=== PATIENT | female | born 2000 | race Caucasian/White ===

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

== ENCOUNTER 2020-08-20 12:14 | Emergency (ER) | payer MEDICAID ==
[~2020-08-20] VITALS: Ht 160 cm; Wt 61.2 kg
[2020-08-20 12:29] VITALS: BP_SYST 127
--- NOTE | 2020-08-20 12:56 | NUR ---
Patient to ER bed 04 to gown for evaluation. Side rails up.
--- NOTE | 2020-08-20 13:10 | NUR ---
PT COMING FROM HOME C/O EPIGASRIC PAIN FOR THE LAST THREE DAYS. PT DENIES ANY N/V/D. PT RESPITATION IS EVEN AND UNLABORED. URINE SEND TO LAB
[2020-08-20 13:33] LABS: BASOPHILS % (AUTO) 0.6 % (0.0-2.0); EOSINOPHILS # (AUTO) 0.2 K/uL (0.0-0.4); EOSINOPHILS % (AUTO) 3.6 % (0.0-4.0); HEMOGLOBIN 13.2 g/dL (12.0-16.0); LYMPHOCYTES % (AUTO) 37.7 % (20.5-51.5); MEAN CORPUSCULAR HEMOGLOBIN 29 pg (27-31); MEAN CORPUSCULAR HGB CONC 34 % (32-36); MEAN CORPUSCULAR VOLUME 85 fL (79.0-98.0); MONOCYTES # (AUTO) 0.4 K/uL (0.0-1.0); MONOCYTES % (AUTO) 6.5 % (1.7-9.3); NEUTROPHILS # (AUTO) 2.8 K/uL (1.8-7.7); NEUTROPHILS % (AUTO) 51.6 % (40.0-70.0); PLATELET COUNT (AUTO) 253 K/uL (130-430); RED BLOOD CELL COUNT(AUTO) 4.61 MIL/uL (4.2-6.2); RED CELL DISTRIBUTION WIDTH 12.4 % (9.0-15.0); WHITE BLOOD COUNT (AUTO) 5.4 K/uL (4.8-10.8)
[2020-08-20 13:40] LABS: CALCIUM 8.2 mg/dL (8.4-11.0); CREATININE 0.67 mg/dL (0.55-1.30); POTASSIUM 3.9 mmol/L (3.5-5.1)
[2020-08-20 13:51] LABS: ALBUMIN 3.6 g/dL (3.4-4.8); TOTAL BILIRUBIN 0.4 mg/dL (0.0-1.0)
--- NOTE | 2020-08-20 14:49 | NUR ---
PT VERBAILZED UNDERSTANDING OF D/C PAPER WORK AND PRESCRIPTION. PT RESPIRAION IS EVEN AND UNLABORED. PT DENIES ANY PAIN, N/V. PT EDUCATED TO FOLLOW UP WITH PRIMARY HEALTH CARE PROVIDER
[2020-08-20 14:51] VITALS: BP_SYST 123
--- NOTE | 2020-08-20 14:52 | NUR ---
Patient given written and verbal discharge instructions and verbalizes understanding. ER MD discussed with patient the results and treatment provided. Patient in stable condition. ID arm band removed. Rx of Omeprazole given. Patient educated on pain management and to follow up with PMD. Pain Scale 0/10. Opportunity for questions provided and answered. Medication side effect fact sheet provided.
== END 2020-08-20 14:52 | disposition home or self-care (01) ==
LOC: SED 12:14
DX: K29.70 Gastritis, unspecified, without bleeding (principal)
CPT/HCPCS: 36415; 76700-TC; 80053; 81002; 81025; 82150-TC; 83605; 83690-TC; 84703; 85025; 99284

== ENCOUNTER 2020-10-11 16:58 | Emergency (ER) | payer MEDICAID ==
[~2020-10-11] VITALS: Ht 157.5 cm; Wt 54.4 kg
[2020-10-11 17:35] VITALS: BP_SYST 150
[2020-10-11 17:40] VITALS: BP_SYST 150
[2020-10-11 18:19] LABS: BILIRUBIN,URINE NEGATIVE (NEGATIVE); BLOOD, URINE 3+ (NEGATIVE); CLARITY/URINE CLOUDY (CLEAR); COLOR,URINE YELLOW (YELLOW); GLUCOSE,URINE NEGATIVE (NEGATIVE); KETONES,URINE 1+ (NEGATIVE); LEUKOCYTE ESTERASE ,URINE TRACE (NEGATIVE); NITRITE, URINE POSITIVE (NEGATIVE); PROTEIN URINE 3+ (NEGATIVE); UROBILINOGEN,URINE 0.2 (0.2-1.0)
[2020-10-11 18:32] LABS: BACTERIA,URINE MANY /HPF (None Seen); MUCUS,URINE 2+ /LPF (None Seen); WBC,URINE 20-50 /HPF (0-3)
[2020-10-12] MEDS ORDERED: SULFAMETHOXAZOLE/TRIMETHOPR DS 1 TABLET ONE (14:11)
[2020-10-12] MEDS ORDERED: PHENAZOPYRIDINE HCL 100 MG TABLET ONE (14:11)
== END 2020-10-11 23:00 | disposition home or self-care (01) ==
LOC: SED 16:58
DX: R10.2 Pelvic and perineal pain (principal)
CPT/HCPCS: 81000-TC; 81025; 87086; 99283

== ENCOUNTER 2020-10-12 12:50 | Emergency (ER) | payer MEDICAID | END 2020-10-12 14:10 | disposition home or self-care (01) | LOC: SED 12:50 | DX: N39.0 Urinary tract infection, site not specified (principal) | CPT/HCPCS: 81002; 99281; 99283 ==

== ENCOUNTER 2022-05-11 01:32 | Emergency (ER) | payer MEDICAID ==
[~2022-05-11] VITALS: Ht 157.5 cm; Wt 59.0 kg
[2022-05-11 01:45] VITALS: BP_SYST 124
--- NOTE | 2022-05-11 01:45 | NUR ---
Patient triaged and placed in waiting room. VSS and patient appears in no acute distress at this time. Accompanied by friend, awaiting available bed, and MD notified of need for MSE.
--- NOTE | 2022-05-11 02:22 | NUR ---
ER examining patient in the triage room.
[2022-05-11] MEDS ORDERED: IBUP-1971 PO (02:42)
[2022-05-11] MEDS ORDERED: IBUPROFEN 800 MG TABLET PO ONE (02:45)
--- NOTE | 2022-05-11 03:03 | NUR ---
Patient given written and verbal discharge instructions and verbalizes understanding. ER MD discussed with patient the results and treatment provided. Patient in stable condition. ID arm band removed. no Rx of given. Patient educated on pain management and to follow up with PMD. Pain Scale 5/10. Opportunity for questions provided and answered. Medication side effect fact sheet provided.
[2022-05-11 03:05] VITALS: BP_SYST 119
== END 2022-05-11 03:03 | disposition home or self-care (01) ==
LOC: SED 01:32
DX: S93.401A Sprain of unspecified ligament of right ankle, initial encounter (principal); X50.1XXA Overexertion from prolonged static or awkward postures, initial encounter; Y93.89 Activity, other specified; Y92.89 Other specified places as the place of occurrence of the external cause; Y99.8 Other external cause status
CPT/HCPCS: 99283